=== PATIENT | male | born 1980 | race Caucasian/White ===

== ENCOUNTER 2019-10-23 07:10 | Emergency (ER) | payer BC, OTHER ==
[2019-10-23 07:28] VITALS: BP 133/87
--- NOTE | 2019-10-23 07:34 | UC ---
Throat Pain/Nasal Mir HPI - HPI Summary HPI Summary: 39 yo male presents with sore throat and bilateral ear pain for the past two days. Has felt feverish and decreased appetite. No n/V/d. Denies cough, chest pain nor sob. - History of Current Complaint Chief Complaint: UCGeneralIllness Stated Complaint: ST,EAR PAIN Time Seen by Provider: 10/23/19 07:23 Hx Obtained From: Patient Pain Intensity: 0 - Allergies/Home Medications Allergies/Adverse Reactions: Allergies Allergy/AdvReac Type Severity Reaction Status Date / Time Sulfa (Sulfonamide Allergy Unknown Verified 10/23/19 07:24 Antibiotics) Reaction Details Home Medications: Home Medications Cetirizine* [ZyrTEC 10 MG TAB*] 1 tab PO DAILY 10/23/19 [History Confirmed 10/23] Ibuprofen TAB* [Advil TAB*] 4 tab PO ONCE 10/23/19 [History Confirmed 10/23/19] Lisinopril [Prinivil TAB 20 mg] 20 mg PO DAILY 10/23/19 [History Confirmed 10/23] Pseudoephedrine HCl [Sudafed] 2 tab PO ONCE 10/23/19 [History Confirmed 10/23/19 ] PMH/Surg Hx/FS Hx/Imm Hx Previously Healthy: 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 - Surgical History Surgical History: Yes Surgery Procedure, Year, and Place: BACK SX - Family History Known Family History: Positive: Non-Contributory - Social History Alcohol Use: Weekly Substance Use Type: None Smoking Status (MU): Never Smoked Tobacco Type: Smokeless Tobacco Length of Time of Smoking/Using Tobacco: 7-8 YRS Review of Systems All Other Systems Reviewed And Are Negative: Yes Constitutional: Positive: Chills, Fatigue Skin: Positive: Negative Eyes: Positive: Negative ENT: Positive: Sore Throat Respiratory: Negative: Shortness Of Breath, Cough Cardiovascular: Negative: Palpitations, Chest Pain Gastrointestinal: Negative: Abdominal Pain, Vomiting, Diarrhea, Nausea Genitourinary: Positive: Negative Motor: Positive: Negative Neurovascular: Positive: Negative Musculoskeletal: Positive: Negative Neurological: Positive: Negative Psychological: Positive: Negative Is Patient Immunocompromised?: No Physical Exam Triage Information Reviewed: Yes Appearance: Well-Appearing Vital Signs: Initial Vital Signs Temp 97.6 F 10/23/19 07:26 Pulse 99 10/23/19 07:26 Resp 16 10/23/19 07:26 BP 133/87 10/23/19 07:26 Pulse Ox 100 10/23/19 07:26 Vital Signs Reviewed: Yes Eyes: Positive: Conjunctiva Clear ENT: Positive: Pharyngeal erythema, TMs normal, Tonsillar swelling, Tonsillar exudate - bilateral, Uvula midline. Negative: Nasal congestion, Sinus tenderness Neck: Positive: Supple, Nontender, Tenderness @ - bilateral anterior cervical nodes, no significant swelling. Respiratory: Positive: Lungs clear, Normal breath sounds, No respiratory distress. Negative: Crackles, Rhonchi, Wheezing Cardiovascular: Positive: RRR, No Murmur Abdomen Description: Positive: Nontender, Soft Musculoskeletal Exam: Normal Neurological Exam: Normal Psychological Exam: Normal Skin Exam: Normal Throat Pain/Nasal Course/Dx - Differential Dx/Diagnosis Provider Diagnosis: Pharyngitis Discharge ED - Sign-Out/Discharge Documenting (check all that apply): Patient Departure All imaging exams completed and their final reports reviewed: No Studies - Discharge Plan Condition: Stable Disposition: HOME Prescriptions: Penicillin VK 500 MG TAB(NF) [Penicillin VK 500 mg Tab] 500 mg PO TID 10 Days # 30 tab Patient Education Materials: Pharyngitis (ED) Referrals: Augustine Dhaliwal PA [Primary Care Provider] - Additional Instructions: Take antibiotics as prescribed. Throat culture was sent and is pending. Follow- up with your primary care physician if your symptoms persist or worsen. - Billing Disposition and Condition Condition: STABLE Disposition: Home
== END 2019-10-23 07:58 | disposition home or self-care (01) ==
LOC: UCCORT 07:10
DX: J02.9 Acute pharyngitis, unspecified (principal); R53.83 Other fatigue; Z85.72 Personal history of non-Hodgkin lymphomas; Z88.2 Allergy status to sulfonamides
CPT/HCPCS: 87070; 87651; 99202; G0463